=== PATIENT | female | born 1950 | race Caucasian/White ===

== ENCOUNTER 2017-09-04 06:41 | Observation (INO) | payer MEDICARE ==
[2017-09-02 17:55] LABS: BASOPHILS # (AUTO) 0.1 (0.0-0.1); BASOPHILS % 0.7 % (0.0-1.0); EOSINOPHILS # (AUTO) 0.1 (0.0-0.4); EOSINOPHILS % 0.6 % (0.0-6.0); HEMATOCRIT 35.9 % (34.2-44.1); LYMPHOCYTES # (AUTO) 2.5 (1.0-3.2); LYMPHOCYTES % 30.5 % (18.0-39.1); MEAN CORPUSCULAR HEMOGLOBIN 34.3 pg (28-32); MEAN CORPUSCULAR HGB CONC 33.4 g/dL (31-35); MEAN CORPUSCULAR VOLUME 102.6 fL (81-99); MONOCYTES # (AUTO) 0.5 (0.2-0.8); MONOCYTES % 6.1 % (4.4-11.3); NEUTROPHILS # (AUTO) 4.9 (2.1-6.9); NEUTROPHILS % 61.6 % (38.7-80.0); PLATELET COUNT 280 x10e3/uL (140-360); RED CELL DISTRIBUTION WIDTH 12.7 % (11.7-14.4)
[2017-09-02 18:18] LABS: ANION GAP 14.3 mmol/L (8-16); CALCIUM 9.1 mg/dL (8.4-10.2); CREATININE, SERUM 1.8 mg/dL (0.57-1.11); POTASSIUM 5.3 mmol/L (3.5-5.1)
--- NOTE | 2017-09-02 18:38 | Diagnostic Imaging Report ---
PROCEDURE: Frontal and lateral views of the chest. COMPARISON: None. INDICATIONS: Preop for gastrointestinal surgery. FINDINGS: Lines/tubes: None. Lungs: The lungs are well inflated and grossly clear. There is no evidence of pneumonia or pulmonary edema. Pleura: There is no pleural effusion or pneumothorax. Heart and mediastinum: The heart and the mediastinum are normal. Bones: No acute bony abnormality. Multiple metallic clips project over the lower anterior cervical region. Intact right proximal humeral prosthesis IMPRESSION: 1. No acute cardiopulmonary abnormalities. Bradley Wing M.D. Dictated by: Bradley Wing M.D. on 09/02/2017 at 18:46 Electronically approved by: Bradley Wing M.D. on 09/02/2017 at 18:46
[~2017-09-04] VITALS: Ht 165.1 cm; Wt 64.9 kg
[2017-09-04] VITALS (7 sets, daily range): BP systolic 137–155; BP diastolic 62–84
[~2017-09-04 06:41] MED LIST: LEVOCETIRIZINE D5 MG PO; LISINOPRIL10 MG PO; REGLAN5 MG PO; SERTRALINE HCL50 MG PO; SYNTHROID100 MCG PO; ULTRAM50 MG PO; XANAX2 MG PO
[2017-09-04] MEDS ORDERED: BUPIVACAINE HCL 0.5% INJ 30 ML VIAL INJ ONE (07:13)
[2017-09-04] MEDS ORDERED: CEFAZOLIN SOD 1 GM/NS 50ML 50 ML IV ONE (07:38)
[2017-09-04] MEDS ORDERED: FAMOTIDINE 20 MG/2 ML VIAL IV ONE ×2 (07:55→14:39)
[2017-09-04] MEDS ORDERED: SCOPOLAMINE 1.5 MG PATCH ONE (07:55)
[2017-09-04] MEDS ORDERED: TRAMADOL HCL 50 MG TAB PO PRN (09:00)
[2017-09-04] MEDS ORDERED: NON-FORMULARY MEDICATION (Alprazolam (Xanax) 2 MG) PO SCH (09:00)
[2017-09-04] MEDS ORDERED: MORPHINE SULFATE 5 MG/ML VIAL IV PRN (09:00)
[2017-09-04] MEDS ORDERED: LISINOPRIL 10 MG TAB PO SCH ×2 (09:00→21:00)
[2017-09-04] MEDS: SERTRALINE HCL 50 MG TAB PO SCH ×3 (09:00→15:26)
[2017-09-04] MEDS ORDERED: LEVOTHYROXINE SODIUM 100 MCG TAB PO SCH (09:00)
[2017-09-04] MEDS ORDERED: FENTANYL CITRATE/PF 100MCG/2 ML INJ ONE ×2 (09:21→11:18)
--- NOTE | 2017-09-04 09:35 | Operative Report ---
DATE OF PROCEDURE: September 04, 2017 PREOPERATIVE DIAGNOSIS: Esophageal obstruction, status post Sina fundoplication. POSTOPERATIVE DIAGNOSIS: Esophageal obstruction, status post Sina fundoplication. PROCEDURES 1. Diagnostic laparoscopy. 2. Laparoscopic revision of Sina fundoplication to partial fundoplication. ROTARY BAR OPERATOR: None. ANESTHESIA: General. INDICATIONS AND FINDINGS: Patient is a 67-year-old female who underwent laparoscopic repair of hiatal hernia with Sina fundoplication about 8 months ago. She has had complaints of severe gas bloating syndrome and requested revision. At surgery, there was adhesions of the previous fundoplication to the edge the liver, but easily dissected free from the esophagus. TECHNIQUE: After adequate general endotracheal anesthesia and the patient in the supine position, the abdomen was prepped and draped in a sterile fashion with [place] solution. Approximately, 3 cm above the umbilicus, a left midline where the previous incision was, the skin was infiltrated with 0.5% Marcaine. A transverse incision was made. Abdominal wall was elevated and Veress needle was introduced. Pneumoperitoneum was then created. A 10-mm trocar and cannula was then passed through this wound. Laparoscopic camera was introduced. Initial laparoscopy revealed no obvious adhesions in the upper abdomen and a few in the lower abdomen. There was no free fluid. A 10-mm trocar and cannula was placed to the right of the midline through the falciform ligament. A 5-mm trocar and cannula placed left to the of the midline subxiphoid. A 10-mm trocar and cannula placed anterior axial line below the costal margin. These were through sites of previous trochar placement. Left lobe of the liver was elevated. The previous fundoplication of the stomach were adherent to the left lobe of the liver. These adhesions were lysed using LigaSure device. The previous fundoplication also was adherent to the diaphragm. The adhesions were lysed also. The plicated stomach was elevated. It was easily from the esophagus. The area where the sutures were in place were identified, and the previous wrapped stomach was divided using scissors and LigaSure device until the Sina fundoplication had completely been taken down. A few other adhesions were lysed. This left some adhesions holding the stomach behind the esophagus bringing it up to the right side so that approximately a 240-degree fundoplication causing no esophageal obstruction. This was left in place. No additional sutures were placed. The peritoneal cavity was irrigated with saline and inspected for hemostasis, which was seen to be adequate. Instruments and cannulas were then removed. Pneumoperitoneum was evacuated. Wounds were then closed. Fascia and larger trocar wounds were closed with 0 Vicryl. Skin to all wounds was closed with 4-0 Vicryl in a subcuticular fashion. Dermabond and sterile dressing were applied to each wound. The patient tolerated the procedure well. Estimated blood loss was 20 mL. There were no complications. All counts were correct. The patient was taken to the recovery room in satisfactory condition. Job#: [id number] LEEANNE
[2017-09-04] MEDS ORDERED: ALPRAZOLAM 1 MG TAB PO PRN (10:00)
[2017-09-04] MEDS: DEXTROSE 5%/0.45% SOD CHL 1,000 ML IV SCH (10:22)
[2017-09-04] MEDS ORDERED: MIDAZOLAM HCL 2 MG/2 ML VIAL ONE (11:18)
[2017-09-04] MEDS ORDERED: DEXAMETHASONE SOD PHOS INJ 4 MG/ML VIAL ONE (14:39)
[2017-09-04] MEDS ORDERED: ROCURONIUM BROMIDE 10 MG/ML 5ML VIAL ONE (14:39)
[2017-09-04] MEDS ORDERED: PROPOFOL IV EMULSION 10 MG/ML 20 ML VIAL ONE (14:39)
[2017-09-04] MEDS ORDERED: GLYCOPYRROLATE INJ 1MG/ 5 ML SYR ONE (14:39)
[2017-09-04] MEDS ORDERED: NEOSTIGMINE 1 MG/ML 10ML VIAL ONE (14:39)
[2017-09-04] MEDS ORDERED: ONDANSETRON HCL INJ 2 MG/ML VIAL ONE (14:39)
[2017-09-04] MEDS ORDERED: LIDOCAINE HCL 2% LOCAL INJ 5 ML SDV VIAL INJ ONE (14:39)
[2017-09-04] MEDS ORDERED: SEVOFLURANE INHAL SOLN 250 ML PEN BTL ONE (14:39)
[2017-09-04] MEDS ORDERED: LISINOPRIL 20 MG TAB PO SCH (21:00)
[2017-09-04] MEDS ORDERED: NON-FORMULARY MEDICATION (Levocetirizine Dihydrochloride 5 MG) PO SCH (21:00)
[2017-09-04] MEDS ORDERED: NON-FORMULARY MEDICATION (Metoclopramide Hcl (Reglan) 5 MG) PO SCH (21:00)
[2017-09-04] MEDS ORDERED: METOCLOPRAMIDE HCL 10 MG TAB PO SCH (21:00)
[2017-09-04] MEDS ORDERED: LORATADINE 10 MG TAB PO SCH (21:00)
[2017-09-05] MEDS: DEXTROSE 5%/0.45% SOD CHL 1,000 ML IV SCH (04:47)
[2017-09-05 05:02] VITALS: BP 104/52
[2017-09-05] MEDS ORDERED: LEVOTHYROXINE SODIUM 100 MCG TAB PO SCH (06:00)
[2017-09-05] MEDS ORDERED: TRAMADOL/APAP 37.5MG-325MG TAB PO PRN (06:30)
[2017-09-05 07:29] LABS: BASOPHILS % 0.5 % (0.0-1.0); EOSINOPHILS % 0.4 % (0.0-6.0); HEMATOCRIT 31.6 % (34.2-44.1); HEMOGLOBIN 10.3 g/dL (12.0-16.0); LYMPHOCYTES # (AUTO) 2.6 (1.0-3.2); LYMPHOCYTES % 33.8 % (18.0-39.1); MEAN CORPUSCULAR HEMOGLOBIN 34.1 pg (28-32); MEAN CORPUSCULAR HGB CONC 32.6 g/dL (31-35); MEAN CORPUSCULAR VOLUME 104.6 fL (81-99); MONOCYTES # (AUTO) 0.6 (0.2-0.8); MONOCYTES % 7.8 % (4.4-11.3); NEUTROPHILS # (AUTO) 4.5 (2.1-6.9); NEUTROPHILS % 57.2 % (38.7-80.0); PLATELET COUNT 238 x10e3/uL (140-360); RED BLOOD COUNT 3.02 x10e6/uL (3.6-5.1); RED CELL DISTRIBUTION WIDTH 12.7 % (11.7-14.4)
[2017-09-05 08:02] VITALS: BP 108/57
[2017-09-05] MEDS: SERTRALINE HCL 50 MG TAB PO SCH (10:33)
[2017-09-05 12:00] VITALS: BP 104/68
== END 2017-09-05 13:41 | disposition home or self-care (01) ==
LOC: OR 06:41 → MED/SURG 10:03
PROVIDERS: ADMIT Surgery; ATTEND Surgery
DX: K22.2 Esophageal obstruction (principal); I10 Essential (primary) hypertension; K58.9 Irritable bowel syndrome, unspecified; R14.0 Abdominal distension (gaseous)
CPT/HCPCS: 36415 ×2; 43280; 71020; 80048; 85025 ×2; 93005; G0378 ×2; J1100; J2001; J2250; J2405; J2710